=== PATIENT | female | born 1995 | race Caucasian/White ===

== ENCOUNTER 2017-11-28 11:12 | Emergency (ER) | payer OTHER ==
[2017-11-28 11:20] VITALS: BP 138/76; PULSE 89; TEMP 98.5; BMI 23.2
[2017-11-28] MEDS ORDERED: ACETAMINOPHEN 325 MG TABLET (FP) PO ONE (11:57)
[2017-11-28] MEDS ORDERED: ACETAMINOPHEN 325 MG TABLET (FP) ONE (11:59)
--- NOTE | 2017-11-28 12:00 | PDOC ---
History of Present Illness - General Chief Complaint: Sore Throat Stated Complaint: COUGH, THROAT PAIN Time Seen by Provider: 11/28/17 11:54 History Source: Patient Exam Limitations: No Limitations (22y/o F with sorethroat, ear pain and nasal congestion X 5 days) - History of Present Illness Associated Symptoms: reports: cough. denies: fever/chills, headaches, nausea/ vomiting, shortness of breath, syncope Past History - Travel Close contact w/someone who was outside of country & ill: No - Past Medical History Allergies/Adverse Reactions: Allergies Allergy/AdvReac Type Severity Reaction Status Date / Time No Known Allergies Allergy Verified 11/28/17 11:20 Home Medications: Ambulatory Orders Benzonatate [Tessalon Pearls -] 100 mg PO TID #21 capsule 11/28/17 Cetirizine HCl 10 mg PO DAILY 30 Days #30 tablet 11/28/17 Ibuprofen 600 mg PO ACDIN 10 Days #21 tablet 11/28/17 COPD: No - Suicide/Smoking/Psychosocial Hx Smoking History: Never smoked Review of Systems - Review of Systems Is the patient limited Portuguese proficient: No Constitutional: No: Chills, Fever HEENTM: Yes: Ear Pain, Throat Pain. No: Ear Discharge, Nose Pain, Hearing Loss , Throat Swelling, Mouth Pain, Difficulty Swallowing, Mouth Swelling Respiratory: Yes: Cough. No: Orthopnea, Shortness of Breath, SOB with Exertion , Wheezing, Productive cough Cardiac (ROS): No: Chest Pain, Palpitations *Physical Exam - Vital Signs Last Vital Signs Temp Pulse Resp BP Pulse Ox 98.5 F 89 18 138/76 99 11/28/17 11:18 11/28/17 11:18 11/28/17 11:18 11/28/17 11:18 11/28/17 11:18 - Physical Exam General Appearance: Yes: Nourished HEENT: positive: EOMI, JERICHO, TMs Normal, Pharyngeal Erythema, Nasal Congestion, Rhinorrhea. negative: Pale Conjunctivae, Tonsillar Erythema Respiratory/Chest: positive: Lungs Clear, Normal Breath Sounds Cardiovascular: positive: Regular Rhythm, Regular Rate, S1, S2 Extremity: positive: Normal Capillary Refill Neurologic: positive: director of community center II-XII NML intact, Fully Oriented, Alert Medical Decision Making - Medical Decision Making 11/28/17 11:59 22y/o F with sorethroat , nasal congestion and ear pain X 5 days RS sent neg tyelnol given salt water gargle 11/28/17 14:27 *DC/Admit/Observation/Transfer Diagnosis at time of Disposition: URI, acute - Discharge Dispostion Disposition: HOME Condition at time of disposition: Stable Decision to Admit order: No - Prescriptions Prescriptions: Benzonatate [Tessalon Pearls -] 100 mg PO TID #21 capsule Cetirizine HCl 10 mg PO DAILY 30 Days #30 tablet Ibuprofen 600 mg PO ACDIN 10 Days #21 tablet - Referrals - Patient Instructions Printed Discharge Instructions: Common Cold Additional Instructions: Your strep was negative today please hydrate, take medication as prescribed follow up with your primary care doctor, return to the Emergency Department if worsening symptoms occurs, - Post Discharge Activity
== END 2017-11-28 12:54 | disposition home or self-care (01) ==
LOC: JERFT 11:12
DX: J06.9 Acute upper respiratory infection, unspecified (principal); B97.89 Other viral agents as the cause of diseases classified elsewhere
CPT/HCPCS: 87070; 87430; 99281-25